=== PATIENT | female | born 1935 | race Caucasian/White ===

== ENCOUNTER 2023-01-17 09:17 | Outpatient (CLI) | payer MEDICARE, BC ==
[2023-01-17] MEDS ORDERED: Iopamidol-370 76% 500 ML MDV (1 ML CHARGE) ONE (15:09)
== END 2023-01-17 09:18 | disposition home or self-care (01) ==
LOC: BICCT 09:17
PROVIDERS: ATTEND Family Medicine
DX: C80.1 Malignant (primary) neoplasm, unspecified (principal); I51.7 Cardiomegaly; R91.8 Other nonspecific abnormal finding of lung field
CPT/HCPCS: 71260; Q9967